=== PATIENT | female | born 1995 | race Caucasian/White ===

== ENCOUNTER 2016-08-09 13:32 | Inpatient (IN) | payer OTHER ==
[2016-08-09] MEDS ORDERED: Terbutaline 1 MG/ML SDV SUBCUT PRN (14:02)
[2016-08-09] MEDS ORDERED: Sodium Chloride 0.9% 2.5 ML Syringe FLUSH PRN (14:35)
[2016-08-09] MEDS ORDERED: Magnesium Sulfate/Water 4 GM in Premix Bag 1 BAG IV ONE (14:35)
[2016-08-09] MEDS ORDERED: Calcium Gluconate 10% 1 GM/10 ML SDV IV PRN (14:35)
[2016-08-09] MEDS ORDERED: Misoprostol 25 MCG (1/4 of 100 MCG) Tab VAG SCH (15:00)
[2016-08-09 15:43] LABS: CHLORIDE,CL 109 mmol/L (98-110); SODIUM,NA 138 mmol/L (136-146)
[2016-08-09] MEDS: Dextrose 5%-0.9% NaCl 1,000 ML IV SCH (15:51)
[2016-08-09] MEDS: Magnesium Sulfate/Water 40 GM/1,000 ML BAG IV SCH (16:24)
[2016-08-09] MEDS: Misoprostol 25 MCG (1/4 of 100 MCG) Tab VAG PRN (20:00)
[2016-08-10] MEDS ORDERED: Acetaminophen 325 MG Tab PO PRN (00:10)
[2016-08-10] MEDS: Misoprostol 25 MCG (1/4 of 100 MCG) Tab VAG PRN (04:02)
[2016-08-10] MEDS ORDERED: Misoprostol 50 MCG (1/2 of 100 MCG) Tab PO ONE (08:10)
[2016-08-10] MEDS: Butorphanol 1 MG/ML SDV IVPUSH PRN ×2 (08:21→10:45)
[2016-08-10] MEDS: Magnesium Sulfate/Water 40 GM/1,000 ML BAG IV SCH (11:59)
[2016-08-10] MEDS ORDERED: Ondansetron 4 MG/2 ML SDV IVPUSH PRN (14:22)
[2016-08-10] MEDS: Oxytocin/Lactated Ringers 30 UNIT/500 ML BAG IV SCH (14:42)
[2016-08-10] MEDS ORDERED: Lactated Ringers 1,000 ML IV SCH (15:00)
[2016-08-10] MEDS ORDERED: fentaNYL 100 MCG/2 ML SDV ONE (21:07)
[2016-08-10] MEDS ORDERED: Ropivacaine HCl/PF 100 ML ONE (21:08)
[2016-08-10] MEDS ORDERED: Ropivacaine 0.2% 2 MG/ML 20 ML SDV ONE (21:08)
--- NOTE | 2016-08-10 22:02 | PCM.PREANE ---
Preanesthetic Assessment - ANESTHESIA/TRANSFUSION/FAMILY HX Anesthesia/Transfusion History: No Prior Transfusion(s), Prior Anesthesia Type of Anesthesia Reaction: Denies: Allergy, Anesthesia Awareness, Excessive Somnolence, Excessive Nausea/Vomiting, Excessive Itching, Excessive Shivering, Malignant Hyperthermia, Malignant Hyperthermia, Family History, Pseudocholinesterase Deficiency, Pseudocholinesterase Deficiency, Family History of, Urinary Retention, Unknown, Other (see below) Family History of Anesthesia Reaction: No - REVIEW OF SYSTEMS Constitutional: Reports: no symptoms SUPERVISOR COREMAKER: Reports: no symptoms Respiratory: Reports: no symptoms Cardiovascular: Reports: blood pressure problem (Pre-eclampsia, on magnesium infusion) GI: Reports: no symptoms Other: Reports: none - PHYSICAL ASSESSMENT Height: 1.63 m Weight: 97.069 kg NPO Status Date: 08/10/16 NPO Status Time: 21:56 (cl liquids) ASA Class: 3 Mental Status: alert & oriented x3 Airway Class: Mallampati = 2 Dentition: Reports: normal dentition Thyro-Mental Finger Breadths: 3 Mouth Opening Finger Breadths: 3 ROM/Head Extension: full Respiratory Status: lungs clear to auscultation bilaterally Cardiovascular Status: regular rate & rhythm, normal S1, S2, no murmur, blood pressure WNL - LAB Values: Laboratory Last Values WBC 9.78 K/uL (4.0-11.0) 08/09/16 15:05 RBC 4.63 M/uL (4.30-5.90) 08/09/16 15:05 Hgb 13.5 g/dL (12.0-16.0) 08/09/16 15:05 Hct 39.8 % (36.0-46.0) 08/09/16 15:05 MCV 86.0 fL (80.0-98.0) 08/09/16 15:05 MCH 29.2 pg (27.0-32.0) 08/09/16 15:05 MCHC 33.9 g/dL (31.0-37.0) 08/09/16 15:05 RDW Std Deviation 42.6 fl (28.0-62.0) 08/09/16 15:05 RDW Coeff of Mychal 14 % (11.0-15.0) 08/09/16 15:05 Plt Count 249 K/uL (150-400) 08/09/16 15:05 MPV 11.50 fL (7.40-12.00) 08/09/16 15:05 Nucleated RBC % 0.0 /100WBC 08/09/16 15:05 Nucleated RBCs # 0 K/uL 08/09/16 15:05 Sodium 138 mmol/L (136-146) 08/09/16 15:05 Potassium 4.3 mmol/L (3.5-5.1) 08/09/16 15:05 Chloride 109 mmol/L (98-110) 08/09/16 15:05 Carbon Dioxide 20 mmol/L (21-31) L 08/09/16 15:05 BUN 11 mg/dL (6.0-23.0) 08/09/16 15:05 Creatinine 0.7 mg/dL (0.6-1.5) 08/09/16 15:05 Est Cr Clr Drug Dosing 109.78 mL/min 08/09/16 15:05 Estimated GFR (MDRD) > 60.0 ml/min 08/09/16 15:05 Glucose 93 mg/dL (60-110) 08/09/16 15:05 Uric Acid 6.3 mg/dL (2.1-6.2) H 08/09/16 15:05 Calcium 9.0 mg/dL (8.8-10.8) 08/09/16 15:05 Magnesium 4.0 mEq/L (1.5-2.3) H 08/10/16 20:26 Total Bilirubin 0.3 mg/dL (0.1-1.5) 08/09/16 15:05 AST 17 IU/L (5-40) 08/09/16 15:05 ALT 16 IU/L (8-54) 08/09/16 15:05 Alkaline Phosphatase 142 (40-150) 08/09/16 15:05 Total Protein 6.9 g/dL (6.0-8.0) 08/09/16 15:05 Albumin 3.4 g/dL (3.5-5.0) L 08/09/16 15:05 Globulin 3.5 g/dL (2.0-3.5) 08/09/16 15:05 Albumin/Globulin Ratio 1.0 (1.3-2.8) L 08/09/16 15:05 Blood Type O NEGATIVE 08/09/16 15:05 Antibody Screen NEGATIVE 08/09/16 15:05 - ALLERGIES Allergies/Adverse Reactions: Allergies Allergy/AdvReac Type Severity Reaction Status Date / Time No Known Allergies Allergy Verified 08/09/16 14:00 - BLOOD Blood Available: Yes Product(s) Available: PRBC - ANESTHESIA PLAN Anesthesia Type Planned: epidural - ACKNOWLEDGEMENTS Pt an appropriate candidate for the planned anesthesia: Yes Alternatives and risks of anesthesia discussed w pt/guardian: Yes Pt/Guardian understands and agree with anesthesia plan: Yes 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: , 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 , Other (see below) Other OB/BYN History: Chlamydia, many years ago Neurological History: Reports: Head trauma Other Neuro History: Age 7 fell from tree house and hit head, received radha to head laceration, radha were removed Psychiatric History: Reports: ADD - Infectious Disease History Infectious Disease History: Reports: None - Past Surgical History Neurological Surgical History: Reports: None - SUBSTANCE USE Smoking Status *Q: Never Smoker Second Hand Smoke Exposure: No Days Per Week of Alcohol Use: 1 Number of Drinks Per Day: 2 Total Drinks Per Week: 2 Date of Last Drink: 10/09/15 Recreational Drug Use History: No - CURRENT (IN HOUSE) MEDS Current Meds: Current Medications Acetaminophen (Tylenol) 650 mg PO Q4H PRN PRN Reason: Pain Last Admin: 08/10/16 00:17 Dose: 650 mg Butorphanol Tartrate (Stadol) 1 mg IVPUSH ASDIRECTED PRN PRN Reason: Pain Stop: 08/12/16 08:10 Last Admin: 08/10/16 10:45 Dose: 1 mg Calcium Gluconate (Calcium Gluconate) 1 gm IV ASDIRECTED PRN PRN Reason: respiratory distress Oxytocin/Lactated Ringer's (Pitocin In Lr 30 Units/500 Ml) 30 unit in 500 mls @ 2 mls/hr IV TITRATE WALLY; 2 MUNITS/MIN PRN Reason: Protocol Last Titration: 08/10/16 20:55 Dose: 16 munits/min, 16 mls/hr Dextrose/Sodium Chloride (Dextrose 5%-Normal Saline) 1,000 mls @ 60 mls/hr IV ASDIRECTED WALLY Last Admin: 08/09/16 15:51 Dose: 60 mls/hr Magnesium Sulfate (Magnesium Sulfate 40 Gm In Water 1000 Ml) 40 gm in 1,000 mls @ 50 mls/hr IV ASDIRECTED WALLY; 2 GM/HR PRN Reason: Protocol Last Admin: 08/10/16 11:59 Dose: 2 gm/hr, 50 mls/hr Lactated Ringer's (Ringers, Lactated) 1,000 mls @ 5 mls/hr IV ASDIRECTED WALLY PRN Reason: Protocol Last Admin: 08/10/16 14:42 Dose: 5 mls/hr Misoprostol (Cytotec) 25 mcg VAG .ONCE WALLY Last Admin: 08/09/16 15:51 Dose: 25 mcg Misoprostol (Cytotec) 25 mcg VAG Q4H PRN PRN Reason: Cervical Ripening Stop: 08/10/16 23:01 Last Admin: 08/10/16 04:02 Dose: 25 mcg Ondansetron HCl (Zofran) 4 mg IVPUSH Q4H PRN PRN Reason: Nausea Last Admin: 08/10/16 14:41 Dose: 4 mg Sodium Chloride (Saline Flush) 10 ml FLUSH ASDIRECTED PRN PRN Reason: Keep Vein Open Sodium Chloride (Saline Flush) 2.5 ml FLUSH ASDIRECTED PRN PRN Reason: Keep Vein Open Terbutaline Sulfate (Brethine) 0.25 mg SUBCUT ASDIRECTED PRN PRN Reason: Tacysystole Discontinued Medications Fentanyl (Sublimaze) Confirm Administered Dose 300 mcg .ROUTE .STK-MED ONE Stop: 08/10/16 21:08 Magnesium Sulfate 4 gm/ Premix 100 mls @ 300 mls/hr IV .BOLUS ONE Stop: 08/09/16 14:54 Last Admin: 08/09/16 15:58 Dose: 300 mls/hr Ropivacaine (Naropin 0.2%) Confirm Administered Dose 100 mls @ as directed .ROUTE .STK-MED ONE Stop: 08/10/16 21:09 Misoprostol (Cytotec) 50 mcg PO ONETIME ONE Stop: 08/10/16 08:11 Last Admin: 08/10/16 08:19 Dose: 50 mcg Ropivacaine (Naropin 0.2%) Confirm Administered Dose 20 ml .ROUTE .STK-MED ONE Stop: 08/10/16 21:09 - Free Text/Narrative Note: Labor Analgesia/Epidural Procedure start date: 3/3/17 time: 2109 Attending provider aware Chart reviewed Permit signed Labs reviewed VS/FHR reviewed Pt identified/ID band Pt assessed Risks/Benefits discussed and accepted Monitors in place (BP, HR, SPO2) Patient, Site, Procedure Verification, Pause. "Pain at 9/10" Fluid bolus infused (fluid type and amount): 1000 ml LR Position: Sitting @2117 Prep: Betadine X 3 Sterile Drape Intradermal Wheal: 3 ml 1% Lidocaine Regional placement level: L3-4 Needle: 17 g Tuohy Approach: Midline Technique: JAY glass syringe with 3 ml Sterile water JAY needle depth: 5 cm Paresthesia: None Fluid Obtained: None Catheter insertion time: 2124 Catheter depth at skin: 20 cm Test Dose Time: 2125 RX: 3 ml 1.5% lidocaine with 1:200,000 epi Response: Negative Loading dose Time: 8423-6474 RX: 100 mcg fentanyl followed by 8 ml 0.2% ropivacaine given in 2 ml doses over 14 minutes Pt position: semi fowlers with MARK Continuous infusion Start Time: 2145 RX: 100 ml 0.2% ropivacaine with 200 mcg fentanyl added [2mcg/ml] Continuous infusion rate: 8 ml/hr 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 ) Procedure end date: 08/10/16 time: 2211
[2016-08-11] MEDS: Dextrose 5%-0.9% NaCl 1,000 ML IV SCH (05:25)
[2016-08-11] MEDS: Magnesium Sulfate/Water 40 GM/1,000 ML BAG IV SCH (07:33)
[2016-08-11] MEDS ORDERED: fentaNYL 100 MCG/2 ML SDV ONE ×4 (08:14→20:09)
[2016-08-11] MEDS ORDERED: Ropivacaine HCl/PF 100 ML ONE ×2 (08:14→16:17)
--- NOTE | 2016-08-11 10:31 | PCM.SN ---
- Free Text/Narrative Note: Called to refill epidural infusion. Pt has stable VS. Remains on magnesium infusion for preeclampsia. Is currently not on pitocin drip. Reports being mostly comfortable with contractions. 100 ml 0.2% ropivacaine with 200 mcg fentanyl added replaced to pump with settings left as prior.
[2016-08-11] MEDS: Oxytocin/Lactated Ringers 30 UNIT/500 ML BAG IV SCH (13:30)
[2016-08-11] MEDS ORDERED: Citric Acid/Sodium Citrate Solution 30 ML Cup ONE (16:51)
[2016-08-11] MEDS ORDERED: Bupivacaine 0.5% 10 ML SDV ONE (16:54)
[2016-08-11] MEDS ORDERED: Carboprost Tromethamine 250 MCG/1 ML Amp ONE (16:55)
[2016-08-11] MEDS ORDERED: ceFAZolin 2 GM in Premix Bag 1 BAG IV ONE (17:01)
[2016-08-11] MEDS ORDERED: Citric Acid/Sodium Citrate Solution 30 ML Cup PO ONE (17:15)
[2016-08-11] MEDS ORDERED: Morphine PF 10 MG/10 ML SDV ONE (17:40)
[2016-08-11] MEDS ORDERED: Ondansetron 4 MG/2 ML SDV ONE (17:40)
[2016-08-11] MEDS ORDERED: Oxytocin 10 Units/1 ML SDV ONE ×2 (17:40→17:49)
[2016-08-11] MEDS ORDERED: Propofol 200 MG/20 ML SDV ONE (17:45)
--- NOTE | 2016-08-11 18:16 | PCM.OPNOTE ---
- General Post-Op/Procedure Note Date of Surgery/Procedure: 08/11/16 Operative Procedure(s): primary LTCS Findings: Term female, AGPARs 8,9 weight 6 lb 3 oz. Intact placenta with 3V cord Pre Op Diagnosis: 38 week IUP, Preeclampsia. Arrest of dilation Post-Op Diagnosis: Same Anesthesia Technique: Epidural Primary Surgeon: Anila Meng Fluid Replacement, Intraop: 500 EBL in mLs: 600 Condition: Fair Free Text/Narrative:: Dictation [id number]
[2016-08-11] MEDS ORDERED: Simethicone 80 MG Tab.Chew PO PRN (18:18)
[2016-08-11] MEDS ORDERED: Aluminum Hydroxide/Magnesium Hydroxide/Simethicone Susp 30 ML Cup PO PRN (18:18)
[2016-08-11] MEDS ORDERED: Ondansetron 4 MG/2 ML SDV IV PRN (18:18)
[2016-08-11] MEDS ORDERED: diphenhydrAMINE 50 MG/ML SDV IVPUSH PRN ×2 (18:18→21:35)
[2016-08-11] MEDS ORDERED: Bisacodyl 10 MG Supp RECTAL PRN (18:18)
[2016-08-11] MEDS ORDERED: Lanolin 100% Cream 7 GM Tube TOP PRN (18:18)
[2016-08-11] MEDS ORDERED: Acetaminophen/oxyCODONE 325-5 MG Tab PO PRN (18:18)
[2016-08-11] MEDS ORDERED: Midazolam 1 MG/ML 2 ML SDV ONE (18:25)
[2016-08-11] MEDS ORDERED: Lactated Ringers 1,000 ML IV SCH (18:30)
--- NOTE | 2016-08-11 19:00 | PCM.POSTAN ---
POST ANESTHESIA ASSESSMENT - MENTAL STATUS Mental Status: alert (Pt pleasant, smiling and conversing with staff. Does not show visible signs of pain, but reports it to be "7/10". Continues on magnesium sulfate drip. Stable to return to OB unit. ), oriented - RESPIRATORY Respiratory Status: respiratory rate WNL, airway patent, O2 saturation stable - CARDIOVASCULAR CV Status: pulse rate WNL, blood pressure stable - GASTROINTESTINAL GI Status: no symptoms - POST OP HYDRATION Hydration Status: adequate & stable
[2016-08-11] MEDS: Docusate Sodium 100 MG Cap PO SCH (21:11)
[2016-08-11] MEDS ORDERED: Dextrose 5%-0.9% NaCl 1,000 ML IV SCH (21:15)
[2016-08-11] MEDS ORDERED: fentaNYL 100 MCG/2 ML SDV IVPUSH PRN (21:33)
[2016-08-11] MEDS ORDERED: Nalbuphine 10 MG/1 ML Vial IVPUSH PRN (21:35)
[2016-08-11] MEDS ORDERED: Naloxone 0.4 MG/ML Syringe IVPUSH PRN (21:36)
[2016-08-12 05:59] LABS: CHLORIDE,CL 103 mmol/L (98-110); SODIUM,NA 132 mmol/L (136-146)
[2016-08-12] MEDS: Ketorolac 30 MG/ML SDV IVPUSH SCH ×4 (06:07→18:19)
[2016-08-12] MEDS: Docusate Sodium 100 MG Cap PO SCH ×2 (08:52→20:47)
--- NOTE | 2016-08-12 09:43 | PCM.PNPP ---
- General Info Date of Service: 08/12/16 Subjective Update: Patient is doing well overall--she rested last night. Pain is well controlled. Denies headaches, visual changes, chest pain or shortness of breath. Lochia is dissipating. Is working with . Functional Status: Reports: pain controlled - Review of Systems General: Denies: fever, weakness Pulmonary: Denies: shortness of breath Cardiovascular: Denies: chest pain, palpitations, lightheadedness Gastrointestinal: Denies: Nausea, Vomiting Genitourinary: Denies: flank pain Psychiatric: Reports: no symptoms - General Info Date of Service: 08/12/16 - Patient Data Vital Signs - most recent: Last Vital Signs Temp 36.3 C 08/12/16 08:00 Pulse 80 08/12/16 08:56 Resp 18 08/12/16 08:56 BP 124/64 08/12/16 08:00 Pulse Ox 96 08/12/16 08:56 Weight - most recent: 42.728 kg I&O - last 24 hours: Intake & Output 08/11/16 08/12/16 08/12/16 22:59 06:59 14:59 Intake Total 1625 648 Output Total 725 1135 450 Balance 900 -156 -450 Lab Results - last 24 hrs: Laboratory Results - last 24 hr 08/11/16 08/12/16 08/12/16 Range/Units 20:45 05:25 05:25 WBC 15.60 H (4.0-11.0) K/uL RBC 3.59 L (4.30-5.90) M/uL Hgb 10.6 L (12.0-16.0) g/dL Hct 31.3 L (36.0-46.0) % MCV 87.2 (80.0-98.0) fL MCH 29.5 (27.0-32.0) pg MCHC 33.9 (31.0-37.0) g/dL RDW Std Deviation 43.4 (28.0-62.0) fl RDW Coeff of Mychal 14 (11.0-15.0) % Plt Count 210 (150-400) K/uL MPV 10.70 (7.40-12.00) fL Neut % (Auto) 76.5 (48.0-80.0) % Lymph % (Auto) 12.4 L (16.0-40.0) % [place] % (Auto) 10.2 (0.0-15.0) % Eos % (Auto) 0.8 (0.0-7.0) % Baso % (Auto) 0.1 (0.0-1.5) % Neut # 12.0 H (1.4-5.7) K/uL Lymph # 1.9 (0.6-2.4) K/uL [place] # 1.6 H (0.0-0.8) K/uL Eos # 0.1 (0.0-0.7) K/uL Baso # 0.0 (0.0-0.1) K/uL Nucleated RBC % 0.0 /100WBC Nucleated RBCs # 0 K/uL Sodium 132 L (136-146) mmol/L Potassium 4.4 (3.5-5.1) mmol/L Chloride 103 (98-110) mmol/L Carbon Dioxide 21 (21-31) mmol/L BUN 17 (6.0-23.0) mg/dL Creatinine 1.0 (0.6-1.5) mg/dL Est Cr Clr Drug Dosing 76.85 mL/min Estimated GFR (MDRD) > 60.0 ml/min Glucose 70 (60-110) mg/dL Calcium 6.6 L (8.8-10.8) mg/dL Magnesium 4.8 H (1.5-2.3) mEq/L Total Bilirubin 0.4 (0.1-1.5) mg/dL AST 24 (5-40) IU/L ALT 11 (8-54) IU/L Alkaline Phosphatase 115 (40-150) Total Protein 5.3 L (6.0-8.0) g/dL Albumin 2.5 L (3.5-5.0) g/dL Globulin 2.8 (2.0-3.5) g/dL Albumin/Globulin Ratio 0.9 L (1.3-2.8) 08/12/16 Range/Units 05:25 WBC (4.0-11.0) K/uL RBC (4.30-5.90) M/uL Hgb (12.0-16.0) g/dL Hct (36.0-46.0) % MCV (80.0-98.0) fL MCH (27.0-32.0) pg MCHC (31.0-37.0) g/dL RDW Std Deviation (28.0-62.0) fl RDW Coeff of Mychal (11.0-15.0) % Plt Count (150-400) K/uL MPV (7.40-12.00) fL Neut % (Auto) (48.0-80.0) % Lymph % (Auto) (16.0-40.0) % [place] % (Auto) (0.0-15.0) % Eos % (Auto) (0.0-7.0) % Baso % (Auto) (0.0-1.5) % Neut # (1.4-5.7) K/uL Lymph # (0.6-2.4) K/uL [place] # (0.0-0.8) K/uL Eos # (0.0-0.7) K/uL Baso # (0.0-0.1) K/uL Nucleated RBC % /100WBC Nucleated RBCs # K/uL Sodium (136-146) mmol/L Potassium (3.5-5.1) mmol/L Chloride (98-110) mmol/L Carbon Dioxide (21-31) mmol/L BUN (6.0-23.0) mg/dL Creatinine (0.6-1.5) mg/dL Est Cr Clr Drug Dosing mL/min Estimated GFR (MDRD) ml/min Glucose (60-110) mg/dL Calcium (8.8-10.8) mg/dL Magnesium 5.0 H (1.5-2.3) mEq/L Total Bilirubin (0.1-1.5) mg/dL AST (5-40) IU/L ALT (8-54) IU/L Alkaline Phosphatase (40-150) Total Protein (6.0-8.0) g/dL Albumin (3.5-5.0) g/dL Globulin (2.0-3.5) g/dL Albumin/Globulin Ratio (1.3-2.8) Med Orders - Current: Current Medications Acetaminophen (Tylenol) 650 mg PO Q4H PRN PRN Reason: Pain Last Admin: 08/10/16 00:17 Dose: 650 mg Al Hydroxide/Mg Hydroxide (Mag-Al Plus) 30 ml PO Q8H PRN PRN Reason: Heartburn Bisacodyl (Dulcolax) 10 mg RECTAL .ONCE PRN PRN Reason: Constipation Calcium Gluconate (Calcium Gluconate) 1 gm IV ASDIRECTED PRN PRN Reason: respiratory distress Diphenhydramine HCl (Benadryl) 25 mg IVPUSH Q6H PRN PRN Reason: Itching or Nausea Diphenhydramine HCl (Benadryl) 25 - 50 mg IVPUSH Q4H PRN PRN Reason: Itching Stop: 08/12/16 18:00 Docusate Sodium (Colace) 100 mg PO BID WALLY Last Admin: 08/12/16 08:52 Dose: 100 mg Emollient Ointment (Lansinoh Hpa) 0 gm TOP ASDIRECTED PRN PRN Reason: Sore Nipples Fentanyl (Sublimaze) 50 - 100 mcg IVPUSH Q30M PRN PRN Reason: Breakthrough Pain Stop: 08/12/16 18:00 Oxytocin/Lactated Ringer's (Pitocin In Lr 30 Units/500 Ml) 30 unit in 500 mls @ 2 mls/hr IV TITRATE WALLY; 2 MUNITS/MIN PRN Reason: Protocol Last Titration: 08/11/16 14:32 Dose: 40 munits/min, 40 mls/hr Magnesium Sulfate (Magnesium Sulfate 40 Gm In Water 1000 Ml) 40 gm in 1,000 mls @ 50 mls/hr IV ASDIRECTED WALLY; 2 GM/HR PRN Reason: Protocol Last Titration: 08/11/16 11:20 Dose: 1 gm/hr, 25 mls/hr Dextrose/Sodium Chloride (Dextrose 5%-Normal Saline) 1,000 mls @ 25 mls/hr IV ASDIRECTED WALLY Ibuprofen (Motrin) 800 mg PO Q8H PRN PRN Reason: mild pain or fever Ketorolac Tromethamine (Toradol) 30 mg IVPUSH Q6H WALLY Stop: 08/12/16 18:01 Last Admin: 08/12/16 06:07 Dose: 30 mg Nalbuphine HCl (Nubain) 2.5 - 10 mg IVPUSH Q3H PRN PRN Reason: Pruritis Stop: 08/12/16 18:00 Naloxone HCl (Narcan) 0.1 mg IVPUSH ONETIME PRN PRN Reason: Respiratory Depression Stop: 08/12/16 21:36 Ondansetron HCl (Zofran) 4 mg IVPUSH Q4H PRN PRN Reason: Nausea Last Admin: 08/10/16 14:41 Dose: 4 mg Ondansetron HCl (Zofran) 4 mg IV Q4H PRN PRN Reason: Nausea/Vomiting Oxycodone/Acetaminophen (Percocet 325-5 Mg) 2 tab PO Q4H PRN PRN Reason: Pain (moderate 4-6) Oxycodone/Acetaminophen (Percocet 325-5 Mg) 1 - 2 tab PO Q4H PRN PRN Reason: Breakthrough Pain Stop: 08/12/16 18:00 Simethicone (Simethicone) 80 mg PO Q4H PRN PRN Reason: Gas Sodium Chloride (Saline Flush) 2.5 ml FLUSH ASDIRECTED PRN PRN Reason: Keep Vein Open Discontinued Medications Bupivacaine HCl (Sensorcaine-Mpf 0.5%) Confirm Administered Dose 20 ml .ROUTE .STK-MED ONE Stop: 08/11/16 16:55 Butorphanol Tartrate (Stadol) 1 mg IVPUSH ASDIRECTED PRN PRN Reason: Pain Stop: 08/12/16 08:10 Last Admin: 08/10/16 10:45 Dose: 1 mg Carboprost Tromethamine (Hemabate Ds) Confirm Administered Dose 250 mcg .ROUTE .STK-MED ONE Stop: 08/11/16 16:56 Citric Acid/Sodium Citrate (Bicitra Solution) Confirm Administered Dose 30 ml .ROUTE .STK-MED ONE Stop: 08/11/16 16:52 Last Admin: 08/11/16 17:04 Dose: 30 ml Citric Acid/Sodium Citrate (Bicitra Solution) 30 ml PO ONETIME ONE Stop: 08/11/16 17:16 Fentanyl (Sublimaze) Confirm Administered Dose 300 mcg .ROUTE .STK-MED ONE Stop: 08/10/16 21:08 Fentanyl (Sublimaze) Confirm Administered Dose 200 mcg .ROUTE .STK-MED ONE Stop: 08/11/16 08:15 Fentanyl (Sublimaze) Confirm Administered Dose 200 mcg .ROUTE .STK-MED ONE Stop: 08/11/16 16:18 Fentanyl (Sublimaze) Confirm Administered Dose 100 mcg .ROUTE .STK-MED ONE Stop: 08/11/16 18:23 Fentanyl (Sublimaze) Confirm Administered Dose 100 mcg .ROUTE .STK-MED ONE Stop: 08/11/16 20:10 Dextrose/Sodium Chloride (Dextrose 5%-Normal Saline) 1,000 mls @ 60 mls/hr IV ASDIRECTED [facility] Last Admin: 08/11/16 05:25 Dose: 25 mls/hr Magnesium Sulfate 4 gm/ Premix 100 mls @ 300 mls/hr IV .BOLUS ONE Stop: 08/09/16 14:54 Last Admin: 08/09/16 15:58 Dose: 300 mls/hr Lactated Ringer's (Ringers, Lactated) 1,000 mls @ 5 mls/hr IV ASDIRECTED [facility] PRN Reason: Protocol Last Admin: 08/10/16 14:42 Dose: 5 mls/hr Ropivacaine (Naropin 0.2%) Confirm Administered Dose 100 mls @ as directed .ROUTE .STK-MED ONE Stop: 08/10/16 21:09 Ropivacaine (Naropin 0.2%) Confirm Administered Dose 100 mls @ as directed .ROUTE .STK-MED ONE Stop: 08/11/16 08:15 Ropivacaine (Naropin 0.2%) Confirm Administered Dose 100 mls @ as directed .ROUTE .STK-MED ONE Stop: 08/11/16 16:18 Cefazolin Sodium/Dextrose 2 gm (/ Premix) 50 mls @ 100 mls/hr IV ONETIME ONE Stop: 08/11/16 17:30 Lactated Ringer's (Ringers, Lactated) 1,000 mls @ 125 mls/hr IV ASDIRECTED [facility] Midazolam HCl (Versed 1 Mg/Ml) Confirm Administered Dose 2 mg .ROUTE .STK-MED ONE Stop: 08/11/16 18:26 Misoprostol (Cytotec) 25 mcg VAG .ONCE WALLY Last Admin: 08/09/16 15:51 Dose: 25 mcg Misoprostol (Cytotec) 25 mcg VAG Q4H PRN PRN Reason: Cervical Ripening Stop: 08/10/16 23:01 Last Admin: 08/10/16 04:02 Dose: 25 mcg Misoprostol (Cytotec) 50 mcg PO ONETIME ONE Stop: 08/10/16 08:11 Last Admin: 08/10/16 08:19 Dose: 50 mcg Morphine Sulfate (Duramorph Pf) Confirm Administered Dose 10 mg .ROUTE .STK-MED ONE Stop: 08/11/16 17:41 Ondansetron HCl (Zofran) Confirm Administered Dose 4 mg .ROUTE .STK-MED ONE Stop: 08/11/16 17:41 Oxycodone/Acetaminophen (Percocet 325-5 Mg) 1 tab PO Q4H PRN PRN Reason: Pain (moderate 4-6) Last Admin: 08/11/16 21:10 Dose: 1 tab Oxytocin (Pitocin) Confirm Administered Dose 10 unit .ROUTE .STK-MED ONE Stop: 08/11/16 17:41 Oxytocin (Pitocin) Confirm Administered Dose 10 unit .ROUTE .STK-MED ONE Stop: 08/11/16 17:50 Propofol (Diprivan 20 Ml) Confirm Administered Dose 200 mg .ROUTE .STK-MED ONE Stop: 08/11/16 17:46 Ropivacaine (Naropin 0.2%) Confirm Administered Dose 20 ml .ROUTE .STK-MED ONE Stop: 08/10/16 21:09 Sodium Chloride (Saline Flush) 10 ml FLUSH ASDIRECTED PRN PRN Reason: Keep Vein Open Terbutaline Sulfate (Brethine) 0.25 mg SUBCUT ASDIRECTED PRN PRN Reason: Tacysystole - Interaction Support Person: - Recovery Exam Fundal Tone: Firm Fundal Level: At Umbilicus Fundal Placement: Midline Lochia Amount: Small Lochia Color: Rubra/Red Perineum Description: Intact, Minimal Bruising/Swelling Episiotomy/Laceration: None Bladder Status: Indwelling Catheter in Place Urinary Elimination: Indwelling Catheter - Exam General: alert, oriented Lungs: Normal respiratory effort Cardiovascular: regular rate, regular rhythm Abdomen: bowel sounds present, soft. No: CVA tenderness Extremities: no calf tenderness, edema (1+ pedal edema) Skin: warm, dry, intact Wound/Incisions: dressing dry and intact Psy/Mental Status: alert, normal affect - Problem List & Annotations (1) delivery delivered SNOMED Code(s): 270236284 Code(s): O82 - ENCOUNTER FOR DELIVERY WITHOUT INDICATION Status: Acute Current Visit: Yes (2) Pre-eclampsia SNOMED Code(s): 016570878 Code(s): O14.90 - UNSPECIFIED PRE-ECLAMPSIA, UNSPECIFIED TRIMESTER Status: Acute Current Visit: Yes - Problem List Review Problem List Initiated/Reviewed/Updated: Yes - My Orders Last 24 Hours: My Active Orders 08/11/16 17:01 Procedure Site Prep Instruct [RC] ASDIRECTED Resuscitation Status Routine 08/11/16 18:18 Communication Order [RC] PER UNIT ROUTINE Communication Order [RC] PER UNIT ROUTINE Communication Order [RC] Per Unit Routine Notify Provider Intake and Out [RC] ASDIRECTED Notify Provider Vital Signs [RC] ASDIRECTED RT Incentive Spirometry [RC] Q2HWA Acetaminophen/oxyCODONE [Percocet 325-5 MG] 2 tab PO Q4H PRN Alum Hydrox/Mag Hydrox/Simeth [Mag-Al Plus] 30 ml PO Q8H PRN Bisacodyl [Dulcolax] 10 mg RECTAL .ONCE PRN Ibuprofen [Motrin] 800 mg PO Q8H PRN Lanolin [Lansinoh HPA] See Dose Instructions TOP ASDIRECTED PRN Ondansetron [Zofran] 4 mg IV Q4H PRN Simethicone 80 mg PO Q4H PRN diphenhydrAMINE [Benadryl] 25 mg IVPUSH Q6H PRN Abdominal Binder [OM.PC] Routine Assess Lochia [WOMSER] Per Unit Routine Assess Uterine Involution [WOMSER] Per Unit Routine Breast Pump [WOMSER] Per Unit Routine Heat Therapy [OM.PC] Routine Ice Therapy [OM.PC] Routine Peripheral IV Discontinue [OM.PC] Routine Sequential Compression Device [OM.PC] Per Unit Routine 08/11/16 18:20 Antiembolic Devices [RC] PER UNIT ROUTINE 08/11/16 21:00 Docusate Sodium [Colace] 100 mg PO BID 08/11/16 21:15 Dextrose 5%-0.9% NaCl [Dextrose 5%-Normal Saline] 1,000 ml IV ASDIRECTED 08/12/16 00:00 Ketorolac [Toradol] 30 mg IVPUSH Q6H 08/12/16 Breakfast Regular Diet [DIET] - Assessment Assessment:: POD 1 status post Primary LTCS Preeclampsia - Plan Plan:: Patient's labs are stable. Blood pressures ranging normal 120-130s/60-70s. Has started diuresing this morning. Magnesium discontinued at 7 am. Ambulate halls , remove moscoso catheter and shower later this afternoon.
[2016-08-12] MEDS: Acetaminophen/oxyCODONE 325-5 MG Tab PO PRN ×3 (10:52→20:45)
[2016-08-12] MEDS: Sodium Chloride 0.9% 10 ML Syringe FLUSH PRN ×4 (12:38→18:21)
--- NOTE | 2016-08-12 17:48 | PCM48HPAN ---
Post Anesthesia Note - EVALUATION WITHIN 48HRS OF ANESTHETIC Vital Signs in Normal Range: Yes Patient Participated in Evaluation: Yes Respiratory Function Stable: Yes Airway Patent: Yes Cardiovascular Function Stable: Yes Hydration Status Stable: Yes Pain Control Satisfactory: Yes Nausea and Vomiting Control Satisfactory: Yes Mental Status Recovered: Yes - COMMENTS/OBSERVATIONS Free Text/Narrative:: Pt reports full return of sensation and motor movement to lower extremities. Denies N/V. Reports mild, insignificant itching. Denies any concerns regarding anesthesia.
[2016-08-13] MEDS: Acetaminophen/oxyCODONE 325-5 MG Tab PO PRN ×3 (02:11→12:31)
[2016-08-13] MEDS: Ibuprofen 800 MG Tab PO PRN ×2 (05:48→14:19)
--- NOTE | 2016-08-13 08:00 | OR ---
SURGEON: Anila Meng M.D. DATE OF PROCEDURE: 08/11/2016 PREOPERATIVE DIAGNOSES: 1. A 38 week intrauterine . 2. Preeclampsia. 3. Arrest of dilation. POSTOPERATIVE DIAGNOSES: 1. A 38 week intrauterine . 2. Preeclampsia. 3. Arrest of dilation. PROCEDURE: Primary low transverse section. ANESTHESIA: Epidural. ESTIMATED BLOOD LOSS: 600 mL. FLUIDS: 500 mL crystalloid intra op. FINDINGS: Term female score 8 at 1 minute, 9 at 5 minute. Weight of 2810 g. Intact placenta, 3-vessel cord. Normal appearing pelvis. DISPOSITION: The patient to PACU in stable condition. Infant nursery. The patient remained on magnesium during recovery. PROCEDURE IN DETAIL: Emily is a 21-year-old, primigravida, who was diagnosed with preeclampsia, admitted on the afternoon of 08/09/2016, for induction of labor after cervical ripening that took place over the next 28 hours. She underwent amniotomy on the evening of 08/10/2016, became increasingly uncomfortable, underwent regional anesthesia with epidural. heart tones were in the 140s with minimal variability due to the magnesium prophylaxis. The patient at the time of amniotomy was found to be 5 cm dilated. She made slow progress through the evening and slasher tender hours. However, the cervix did thin. There were some subtle late appearing deceleration with increasing Pitocin in the slasher tender hours of 08/11/2016. Therefore, Pitocin was discontinued for an interval. IUPC had been placed to help monitor and then was resumed at a lower dose. It took majority of the morning and early afternoon to obtain once again an adequate contraction pattern. The patient did progress to approximately 7 cm dilatation and then heart tones remained in the 140s with minimal variability. Throughout the afternoon hours, the patient made minimal cervical change, approximately 8 cm dilatation. However, the left side of the cervix is now swollen and the presentation is palpated with much molding at 0 station and appears to be asynclitic. Options were discussed with Emily and her family at this time. They agreed to proceed with delivery due to arrest of dilation. Risks of the procedure have been discussed including infection, bleeding, possible trauma surrounding bowel, bladder, ureter, in case of excessive blood loss, need for blood transfusion, in rare lifesaving circumstances, need for hysterectomy, risk of anesthesia, risk for thromboembolic event. The patient taken operating room. After epidural had been rebolus was placed supine position with leftward tilt. SCDs to lower extremities. Jauregui to gravity. Received Ancef prophylactically. The heart tones 140. The IUPC had already been removed. The patient was now prepped and draped in usual sterile fashion. A time-out was performed. Anesthesia was tested and found to be adequate. A Pfannenstiel skin incision was created, carried down to the level of rectus fascia, which was incised in midline and lateralized on either side sharply and bluntly. The superior aspect of fascia was tented upward, dissected sharply and bluntly from underlying muscles. In a similar fashion,this was performed with inferior aspect of the fascia. Rectus muscles were now in midline. Peritoneum was tented upward and entered sharply. The rectus muscles and peritoneum was now lateralized bluntly. Uterine position, position and palpated. Self-retaining retractor gently placed. Uterovesical reflection visualized. Bladder flap created sharply and bluntly. Bladder was mobilized away from uterine segment and it was fairly swollen. A low transverse hysterotomy was now performed. Uterine cavity was entered with blunt end of the scalpel. Hysterotomy was lateralized bluntly. Infant's head was flexed and delivered from the pelvis. The infant was in an asynclitic OP position and head was delivered from the pelvis followed by anterior shoulder and posterior shoulder and remainder of the body without difficulty. There was nuchal cord x1 reduced manually. The infant's oropharynx, nares, bulb suctioned. Cord clamped x2 and cut and the infant was handed off to attending transfer and line up worker, Dr. Rincon. Cord arterial, cord venous, cord blood samples were obtained. The placenta was now delivered. Uterine cavity was cleared of all clot and debris. The uterus initially was somewhat boggy; however, with closure of the hysterotomy with 0 Vicryl in continuous running locked fashion followed by a re-imbricating layer. The uterus became more firm. The posterior aspect of the uterus inspected, no defects or hematomas found be forming. Region was well irrigated, suction dried. Colonic gutters were cleared of all clot and debris, well irrigated and suction dried. The hysterotomy was again inspected. The uterus is much more firm at this juncture. Self-retaining retractor was now gently removed. Hysterotomy was again inspected found to be hemostatic. The rectus muscles now reapproximated using 0 Vicryl with inverted mattress suture technique. Anterior aspect of the muscle, posterior aspect of the fascia closely inspected. Any areas of oozing were cauterized. The rectus fascia was reapproximated using 0 Vicryl in continuous running fashion beginning laterally and tied in the midline. Subcutaneous tissue was now well irrigated, suction dried. Any areas of oozing were cauterized. The skin edges were reapproximated using 3-0 Vicryl in subcuticular fashion using Adam needle and followed by placement of Mastisol and Steri-Strips. The uterus was once again massaged and found to be firm. Sponge, instrument, and needle count was correct x2. The patient tolerated the procedure well. She will go to PACU in fair condition. nursery. YIMI / DELIA /[id number] SHALINI
[2016-08-13 08:01] VITALS: BP 126/84
[2016-08-13] MEDS: Docusate Sodium 100 MG Cap PO SCH (09:57)
--- NOTE | 2016-08-13 15:01 | PCM.PNPP ---
- General Info Date of Service: 08/13/16 Functional Status: Reports: pain controlled, tolerating diet, ambulating, urinating - Review of Systems General: Reports: no symptoms HEENT: Reports: no symptoms Pulmonary: Reports: no symptoms Cardiovascular: Reports: no symptoms Gastrointestinal: Reports: No symptoms, Flatus Genitourinary: Reports: no symptoms Musculoskeletal: Reports: no symptoms Skin: Reports: no symptoms Neurological: Reports: no symptoms Psychiatric: Reports: no symptoms - General Info Date of Service: 08/13/16 - Patient Data Vital Signs - most recent: Last Vital Signs Temp 36.8 C 08/13/16 07:30 Pulse 73 08/13/16 04:00 Resp 16 08/13/16 07:30 BP 126/84 08/13/16 07:30 Pulse Ox 96 08/13/16 07:30 Weight - most recent: 42.728 kg I&O - last 24 hours: Intake & Output 08/12/16 08/13/16 08/13/16 22:59 06:59 14:59 Output Total 1100 Balance -1100 Med Orders - Current: Current Medications Acetaminophen (Tylenol) 650 mg PO Q4H PRN PRN Reason: Pain Last Admin: 08/10/16 00:17 Dose: 650 mg Al Hydroxide/Mg Hydroxide (Mag-Al Plus) 30 ml PO Q8H PRN PRN Reason: Heartburn Bisacodyl (Dulcolax) 10 mg RECTAL .ONCE PRN PRN Reason: Constipation Calcium Gluconate (Calcium Gluconate) 1 gm IV ASDIRECTED PRN PRN Reason: respiratory distress Diphenhydramine HCl (Benadryl) 25 mg IVPUSH Q6H PRN PRN Reason: Itching or Nausea Docusate Sodium (Colace) 100 mg PO BID WALLY Last Admin: 08/13/16 09:57 Dose: 100 mg Emollient Ointment (Lansinoh Hpa) 0 gm TOP ASDIRECTED PRN PRN Reason: Sore Nipples Oxytocin/Lactated Ringer's (Pitocin In Lr 30 Units/500 Ml) 30 unit in 500 mls @ 2 mls/hr IV TITRATE WALLY; 2 MUNITS/MIN PRN Reason: Protocol Last Titration: 08/11/16 14:32 Dose: 40 munits/min, 40 mls/hr Magnesium Sulfate (Magnesium Sulfate 40 Gm In Water 1000 Ml) 40 gm in 1,000 mls @ 50 mls/hr IV ASDIRECTED WALLY; 2 GM/HR PRN Reason: Protocol Last Titration: 08/11/16 11:20 Dose: 1 gm/hr, 25 mls/hr Dextrose/Sodium Chloride (Dextrose 5%-Normal Saline) 1,000 mls @ 25 mls/hr IV ASDIRECTED WALLY Ibuprofen (Motrin) 800 mg PO Q8H PRN PRN Reason: mild pain or fever Last Admin: 08/13/16 14:19 Dose: 800 mg Ondansetron HCl (Zofran) 4 mg IVPUSH Q4H PRN PRN Reason: Nausea Last Admin: 08/10/16 14:41 Dose: 4 mg Ondansetron HCl (Zofran) 4 mg IV Q4H PRN PRN Reason: Nausea/Vomiting Oxycodone/Acetaminophen (Percocet 325-5 Mg) 2 tab PO Q4H PRN PRN Reason: Pain (moderate 4-6) Last Admin: 08/13/16 12:31 Dose: 2 tab Simethicone (Simethicone) 80 mg PO Q4H PRN PRN Reason: Gas Last Admin: 08/12/16 15:54 Dose: 80 mg Sodium Chloride (Saline Flush) 2.5 ml FLUSH ASDIRECTED PRN PRN Reason: Keep Vein Open Discontinued Medications Bupivacaine HCl (Sensorcaine-Mpf 0.5%) Confirm Administered Dose 20 ml .ROUTE .STK-MED ONE Stop: 08/11/16 16:55 Butorphanol Tartrate (Stadol) 1 mg IVPUSH ASDIRECTED PRN PRN Reason: Pain Stop: 08/12/16 08:10 Last Admin: 08/10/16 10:45 Dose: 1 mg Carboprost Tromethamine (Hemabate Ds) Confirm Administered Dose 250 mcg .ROUTE .STK-MED ONE Stop: 08/11/16 16:56 Citric Acid/Sodium Citrate (Bicitra Solution) Confirm Administered Dose 30 ml .ROUTE .STK-MED ONE Stop: 08/11/16 16:52 Last Admin: 08/11/16 17:04 Dose: 30 ml Citric Acid/Sodium Citrate (Bicitra Solution) 30 ml PO ONETIME ONE Stop: 08/11/16 17:16 Diphenhydramine HCl (Benadryl) 25 - 50 mg IVPUSH Q4H PRN PRN Reason: Itching Stop: 08/12/16 18:00 Fentanyl (Sublimaze) Confirm Administered Dose 300 mcg .ROUTE .STK-MED ONE Stop: 08/10/16 21:08 Fentanyl (Sublimaze) Confirm Administered Dose 200 mcg .ROUTE .STK-MED ONE Stop: 08/11/16 08:15 Fentanyl (Sublimaze) Confirm Administered Dose 200 mcg .ROUTE .STK-MED ONE Stop: 08/11/16 16:18 Fentanyl (Sublimaze) Confirm Administered Dose 100 mcg .ROUTE .STK-MED ONE Stop: 08/11/16 18:23 Fentanyl (Sublimaze) Confirm Administered Dose 100 mcg .ROUTE .STK-MED ONE Stop: 08/11/16 20:10 Fentanyl (Sublimaze) 50 - 100 mcg IVPUSH Q30M PRN PRN Reason: Breakthrough Pain Stop: 08/12/16 18:00 Dextrose/Sodium Chloride (Dextrose 5%-Normal Saline) 1,000 mls @ 60 mls/hr IV ASDIRECTED [facility] Last Admin: 08/11/16 05:25 Dose: 25 mls/hr Magnesium Sulfate 4 gm/ Premix 100 mls @ 300 mls/hr IV .BOLUS ONE Stop: 08/09/16 14:54 Last Admin: 08/09/16 15:58 Dose: 300 mls/hr Lactated Ringer's (Ringers, Lactated) 1,000 mls @ 5 mls/hr IV ASDIRECTED [facility] PRN Reason: Protocol Last Admin: 08/10/16 14:42 Dose: 5 mls/hr Ropivacaine (Naropin 0.2%) Confirm Administered Dose 100 mls @ as directed .ROUTE .STK-MED ONE Stop: 08/10/16 21:09 Ropivacaine (Naropin 0.2%) Confirm Administered Dose 100 mls @ as directed .ROUTE .STK-MED ONE Stop: 08/11/16 08:15 Ropivacaine (Naropin 0.2%) Confirm Administered Dose 100 mls @ as directed .ROUTE .STK-MED ONE Stop: 08/11/16 16:18 Cefazolin Sodium/Dextrose 2 gm (/ Premix) 50 mls @ 100 mls/hr IV ONETIME ONE Stop: 08/11/16 17:30 Lactated Ringer's (Ringers, Lactated) 1,000 mls @ 125 mls/hr IV ASDIRECTED [facility] Ketorolac Tromethamine (Toradol) 30 mg IVPUSH Q6H WALLY Stop: 08/12/16 18:01 Last Admin: 08/12/16 18:19 Dose: 30 mg Midazolam HCl (Versed 1 Mg/Ml) Confirm Administered Dose 2 mg .ROUTE .STK-MED ONE Stop: 08/11/16 18:26 Misoprostol (Cytotec) 25 mcg VAG .ONCE WALLY Last Admin: 08/09/16 15:51 Dose: 25 mcg Misoprostol (Cytotec) 25 mcg VAG Q4H PRN PRN Reason: Cervical Ripening Stop: 08/10/16 23:01 Last Admin: 08/10/16 04:02 Dose: 25 mcg Misoprostol (Cytotec) 50 mcg PO ONETIME ONE Stop: 08/10/16 08:11 Last Admin: 08/10/16 08:19 Dose: 50 mcg Morphine Sulfate (Duramorph Pf) Confirm Administered Dose 10 mg .ROUTE .STK-MED ONE Stop: 08/11/16 17:41 Nalbuphine HCl (Nubain) 2.5 - 10 mg IVPUSH Q3H PRN PRN Reason: Pruritis Stop: 08/12/16 18:00 Naloxone HCl (Narcan) 0.1 mg IVPUSH ONETIME PRN PRN Reason: Respiratory Depression Stop: 08/12/16 21:36 Ondansetron HCl (Zofran) Confirm Administered Dose 4 mg .ROUTE .STK-MED ONE Stop: 08/11/16 17:41 Oxycodone/Acetaminophen (Percocet 325-5 Mg) 1 tab PO Q4H PRN PRN Reason: Pain (moderate 4-6) Last Admin: 08/11/16 21:10 Dose: 1 tab Oxycodone/Acetaminophen (Percocet 325-5 Mg) 1 - 2 tab PO Q4H PRN PRN Reason: Breakthrough Pain Stop: 08/12/16 18:00 Last Admin: 08/12/16 17:13 Dose: 1 tab Oxytocin (Pitocin) Confirm Administered Dose 10 unit .ROUTE .STK-MED ONE Stop: 03/04/17 17:41 Oxytocin (Pitocin) Confirm Administered Dose 10 unit .ROUTE .STK-MED ONE Stop: 08/11/16 17:50 Propofol (Diprivan 20 Ml) Confirm Administered Dose 200 mg .ROUTE .STK-MED ONE Stop: 08/11/16 17:46 Ropivacaine (Naropin 0.2%) Confirm Administered Dose 20 ml .ROUTE .STK-MED ONE Stop: 08/10/16 21:09 Sodium Chloride (Saline Flush) 10 ml FLUSH ASDIRECTED PRN PRN Reason: Keep Vein Open Last Admin: 08/12/16 18:21 Dose: 10 ml Terbutaline Sulfate (Brethine) 0.25 mg SUBCUT ASDIRECTED PRN PRN Reason: Tacysystole - Interaction Infant Disposition, : [place] in Room with Family Infant Interaction: Holding Infant Infant Feeding: Breastfed ; Nursed Well Support Person: - Recovery Exam Fundal Tone: Firm Fundal Level: 1 Fingerbreadths Below Umbilicus Fundal Placement: Midline Lochia Amount: Scant Lochia Color: Rubra/Red Perineum Description: Intact, Minimal Bruising/Swelling Episiotomy/Laceration: None Bladder Status: Nonpalpable Urinary Elimination: Voided - Exam General: alert, oriented Neck: supple Lungs: Clear to auscultation, Normal respiratory effort Cardiovascular: regular rate, regular rhythm Abdomen: bowel sounds present, soft, no tenderness Extremities: no calf tenderness Skin: warm, dry, intact Wound/Incisions: healing well Neurological: no new focal deficit Psy/Mental Status: alert, normal affect, normal mood - Problem List & Annotations (1) delivery delivered SNOMED Code(s): 341847856 Code(s): O82 - ENCOUNTER FOR DELIVERY WITHOUT INDICATION Status: Acute Current Visit: Yes - Problem List Review Problem List Initiated/Reviewed/Updated: Yes - Assessment Assessment:: POD 2 status post Primary LTCS, Preeclampsia Doing well Desires discharge home - Plan Plan:: Desires discharge home today Incision precautions given Pelvic rest for 6wks Bleeding precautions Infection precautions Thrombotic precautions blues/depression preecautions given
== END 2016-08-13 16:30 | disposition home or self-care (01) | DRG 766 ==
LOC: MW.OBCHECK 13:32 → MW.OB 13:36 → MW.OBCHECK 15:19 → MERGE 08-11 17:36 → OBSVTOIN 08-11 17:36 → MW.OB 08-11 17:59
PROVIDERS: ADMIT Obstetrics & Gynecology; ATTEND Obstetrics & Gynecology
PROC: 10D00Z1 Extraction of Products of Conception, Low, Open Approach (ICD-10-PCS; principal; 2016-08-11)
PROC: 3E033VJ Introduction of Other Hormone into Peripheral Vein, Percutaneous Approach (ICD-10-PCS; 2016-08-11)
PROC: 00HU33Z Insertion of Infusion Device into Spinal Canal, Percutaneous Approach (ICD-10-PCS; 2016-08-11)
PROC: 3E0R3CZ (ICD-10-PCS; 2016-08-11)
DX: O14.93 Unspecified pre-eclampsia, third trimester (principal); O62.0 Primary inadequate contractions; Z3A.38 38 weeks gestation of pregnancy; Z37.0 Single live birth
CPT/HCPCS: 01967; 01968; 36415; 59025; 80053; 83735; 84550; 85025; 85027; 86850; 86900; 86901; A9270-GY; J0595; J0690; J1885; J2250; J2270; J2405; J2590; J2704; J2795; J3010; J3475; J7042; J7120